=== PATIENT | female | born 1950 | race Caucasian/White ===

== ENCOUNTER 2017-04-09 11:55 | Day surgery (SDC) | payer OTHER ==
[~2017-04-09] VITALS: Ht 148.6 cm; Wt 126.7 kg
[~2017-04-09 11:55] MED LIST: CLARITIN10 MG PO; CRESTOR40 MG PO; FERROUS SULFAT325 M1 PO; FIBER SELECT GUMMIES PO; FLUTICASONE PR50 MCG; FUROSEMIDE80 MG PO; GLIPIZIDE10 MG PO; IBUPROFEN600 MG PO; INVOKANA100 MG PO; JANUVIA100 MG PO; LEVOTHYROXINE150 MCG PO; LYRICA100 MG PO; METFORMIN HCL850 MG PO; OMEPRAZOLE40 MG PO; POTASSIUM CHLO10 ME2 PO; PROAIR HFA IN; SENNA-LAX8.6 MG PO; TRULICITY1.5 MG/0.5 SC
--- NOTE | 2017-04-09 13:42 | NUR ---
PREOP INSTURCTIONS GIVEN TO PATIENT AND HER FAMILY. QUESTIONS ANSWERED. PATIENT VERBALIZES UNDERSTANDING. CONSENT CONFIRMED. PREOP MEDICATIONS GIVEN, INCLUDING A DUONEB. DAUGHTER MARKED SIDE. PATIENT RESTING COMFORTABLY. FAMILY IN ROOM. KB
--- NOTE | 2017-04-09 15:37 | NUR ---
PATIENT ARRIVED TO PACU AT 1533. SPONT RESP. VITALS STABLE. AROUSABLE. DRESSINGS TO L BREAST CLEAN, DRY AND INTACT. WILL CONTINUE TO MONITOR.
--- NOTE | 2017-04-09 15:42 | Provider's Discharge Care Plan ---
Problem, Goal, Plan Problem List 1. Hidradenitis suppurativa
--- NOTE | 2017-04-09 15:42 | Provider's Discharge Care Plan ---
Problem, Goal, Plan Problem List 1. Hidradenitis suppurativa
--- NOTE | 2017-04-09 15:51 | NUR ---
PATIENT CONTINUES TO DENY PAIN AND NAUSEA. VITALS REMAIN STABLE. BGL 164 IN PACU.
--- NOTE | 2017-04-09 16:17 | OPERATIVE REPORT ---
DATE OF SURGERY: 04/09/2017 SURGEON: Alex Pang MD PREOPERATIVE DIAGNOSES: 1. Hidradenitis of left chest POSTOPERATIVE DIAGNOSES: 1. Hidradenitis of left chest PROCEDURE PERFORMED: 1. Excision of hidradenitis of left chest (excision of skin and subcutaneous tissue, 9 x 3.5 cm). ANESTHESIA: General. INDICATIONS: The patient is a 67-year-old woman with a recurrent infection of the sinus tract in the inframammary crease on the left breast. SURGICAL TECHNIQUE: The patient was taken to the operating room, where a general anesthetic was administered and the patient prepped and draped in the usual sterile fashion. She was given IV antibiotics. A transverse elliptical incision was designed to remove all the diseased skin and the underlying sinus tracts. This was anesthetized with 0.5% Marcaine with epinephrine. The skin was incised and carried down into the deep subcutaneous tissue, staying wide around the infected tissue. The tissue specimen was removed and the wound was irrigated with local anesthetic and pinpoint hemostasis obtained with electrocautery. The wound was then closed with interrupted deep dermal 4-0 Vicryl and running subcuticular 4-0 Vicryl suture and Steri-Strips. A pressure dressing was applied. The patient left in good condition. No intraoperative complications were encountered.
[2017-04-09 16:42] VITALS: BP 148/70
--- NOTE | 2017-04-09 16:56 | NUR ---
PATIENT RETURNED TO THE FLOOR AWAKE AND TALKING. VSS. PO OFFERED AND TOLERATED. PAIN 4/10. PATIENT REQUESTED IBUPROFEN. 400MG IBUPROFEN GIVEN PO. DISCHARGE INSTRUCTIONS GIVEN TO PATIENT. QUESTIONS ANSWERED. PATIENT VERBALIZES UNDERSTANDING. WILL DISCHARGE HOME WITH HIS FAMILY. KB
== END 2017-04-09 17:24 | disposition home or self-care (01) ==
LOC: OR SRH 11:55 → SCU SRH 11:59 → OR SRH 12:20
PROVIDERS: Surgery
PROC: 0JBF0ZZ Excision of Left Upper Arm Subcutaneous Tissue and Fascia, Open Approach (ICD-10-PCS; principal; 2017-04-09 13:30)
DX: L73.2 Hidradenitis suppurativa (principal); E11.9 Type 2 diabetes mellitus without complications; Z79.84 Long term (current) use of oral hypoglycemic drugs; J45.909 Unspecified asthma, uncomplicated
CPT/HCPCS: 29229; 29240; 50004; 60001; 70002; 80102; 80852; 84038; 90047; 90074